=== PATIENT | male | born 1935 | race Caucasian/White ===

== ENCOUNTER 2019-11-08 18:07 | Emergency (ER) | payer BC, OTHER ==
--- NOTE | 2019-11-08 18:48 | EDM.PDOC ---
ED HPI GENERAL MEDICAL PROBLEM - General Stated Complaint: SOB/CHEST PAIN Time Seen by Provider: 11/08/19 18:20 Source of Information: Reports: Patient, Significant Other History Limitations: Reports: No Limitations - History of Present Illness INITIAL COMMENTS - FREE TEXT/NARRATIVE: Patient presents with report of pain in low central chest during the night last night that kept him awake all night. When he got up at 0600 this morning it got better and he says he coughed up a bunch of stuff. Today (for the last 12 hours) he has felt fine and had no trouble doing his normal activities. He [facility] who told him to come to ER to rule out heart etiology with his history of CABG and stents. He denies any previous IL and isn 't aware of any GERD. He denies any pain in chest, jaw, neck, shoulder or arms. - Related Data Allergies Allergy/AdvReac Type Severity Reaction Status Date / Time soybean Allergy Respiratory Verified 08/31/14 15:27 Distress Home Meds: Home Meds Acetaminophen [Tylenol] 650 mg PO BEDTIME PRN 10/14/13 [History] Aspirin [Halfprin] 81 mg PO DAILY 10/14/13 [History] Levalbuterol HCl [Xopenex] 0.63 mg INH TID PRN 10/14/13 [History] Propylene Glycol/Peg 400 [Systane 0.3-0.4% Eye Drops] 6 - 8 drop EYEBOTH BID 02/20 [History] atorvaSTATin [Lipitor] 40 mg PO BEDTIME 10/14/13 [History] hydroCHLOROthiazide [Microzide] 12.5 mg PO DAILY 10/14/13 [History] Cholecalciferol (Vitamin D3) [Vitamin D-3] 2,000 unit PO DAILY 08/31/14 [History ] Nebivolol HCl [Bystolic] 5 mg PO DAILY 08/31/14 [History] Valsartan [Diovan] 240 mg PO DAILY 08/31/14 [History] Furosemide [Lasix] 40 mg PO BID #60 tab 09/02/14 [Rx] ED ROS GENERAL - Review of Systems Review Of Systems: See Below Constitutional: Denies: Fever, Chills, Malaise, Weakness HEENT: Denies: Ear Pain, Throat Pain, Vision Change Respiratory: Denies: Shortness of Breath, Cough Cardiovascular: Denies: Chest Pain (not now but did last night, see HPI), Syncope GI/Abdominal: Denies: Abdominal Pain, Diarrhea, Vomiting Musculoskeletal: Denies: Neck Pain, Shoulder Pain, Arm Pain, Back Pain, Hand Pain Skin: Denies: Cyanosis, Jaundice, Mottled, Pallor, Diaphoresis Neurological: Denies: Confusion, Dizziness, Headache, Seizure, Syncope, Trouble Speaking, Difficulty Walking Psychiatric: Denies: Agitation, Anxiety, Confusion ED EXAM, GENERAL - Physical Exam Exam: See Below Exam Limited By: No Limitations General Appearance: Alert, WD/WN, No Apparent Distress Eye Exam: Bilateral Eye: EOMI, Normal Inspection, PERRL Ears: Normal External Exam, Hearing Grossly Normal Nose: Normal Inspection, No Blood Throat/Mouth: Normal Inspection, Normal Lips, Normal Voice, No Airway Compromise Head: Atraumatic, Normocephalic Neck: Normal Inspection, Supple, Non-Tender, Full Range of Motion Respiratory/Chest: No Respiratory Distress, Lungs Clear, Normal Breath Sounds, No Accessory Muscle Use Cardiovascular: Normal Peripheral Pulses, Regular Rate, Rhythm Peripheral Pulses: 2+: Carotid (L), Carotid (R), Radial (L), Radial (R) GI/Abdominal: Normal Bowel Sounds, Soft, Non-Tender, No Organomegaly Back Exam: Normal Inspection, Full Range of Motion. No: CVA Tenderness (L), CVA Tenderness (R) Extremities: Normal Inspection, Normal Range of Motion Neurological: Alert, Oriented, Normal Cognition, No Motor/Sensory Deficits Psychiatric: Normal Affect, Normal Mood Skin Exam: Warm, Dry, Intact, Normal Color, No Rash Course - Orders/Labs/Meds Orders: Active Orders 24 hr Category Date Time Status EKG Documentation Completion [RC] ASDIRECTED Care 11/08/19 18:32 Ordered Chest 2V [CR] Stat Exams 11/08/19 18:31 Ordered EKG 12 Lead [EK] Routine Ther 11/08/19 18:31 Ordered Labs: Laboratory Tests 11/08/19 11/08/19 Range/Units 18:20 18:20 WBC 6.81 (5.00-10.00) 10^3/uL RBC 4.76 (4.50-6.00) 10^6/uL Hgb 14.5 (13.0-17.0) g/dL Hct 43.7 (40.0-52.0) % MCV 91.8 (82.0-92.0) fL MCH 30.5 (27.0-31.0) pg MCHC 33.2 (32.0-36.0) g/dL RDW 14.0 (11.5-14.5) % Plt Count 178 (150-400) 10^3/uL MPV 10.3 (7.4-10.4) fL Immature Gran % (Auto) 0.3 (0.0-5.0) % Neut % (Auto) 67.9 (50.0-70.0) % Lymph % (Auto) 14.8 L (20.0-40.0) % [place] % (Auto) 10.4 H (2.0-8.0) % Eos % (Auto) 6.0 H (1.0-3.0) % Baso % (Auto) 0.6 (0.0-1.0) % Immature Gran # (Auto) 0.02 (0.00-0.50) 10^3/uL Neut # (Auto) 4.62 (2.50-7.00) 10^3/uL Lymph # (Auto) 1.01 (1.00-4.00) 10^3/uL [place] # (Auto) 0.71 (0.10-0.80) 10^3/uL Eos # (Auto) 0.41 H (0.10-0.30) 10^3/uL Baso # (Auto) 0.04 (0.00-0.10) 10^3/uL Sodium 147 H (136-145) mmol/L Potassium 4.4 (3.3-5.3) mmol/L Chloride 109 (98-115) mmol/L Carbon Dioxide 25.9 (21.0-32.0) mmol/L Anion Gap 16.5 H (5-15) mmol/L BUN 41 H (6-25) mg/dL Creatinine 1.68 H (0.51-1.17) mg/dL Est Cr Clr Drug Dosing TNP Estimated GFR (MDRD) 39 mL/min Glucose 111 H (75 - 99) mg/dL Calcium 9.0 (8.7-10.3) mg/dL Total Bilirubin 0.1 L (0.2-1.0) mg/dL AST 38 H (15-37) U/L ALT 69 (12-78) U/L Alkaline Phosphatase 78 (46-116) IU/L Troponin I 0.04 (0.00-0.070) ng/mL Total Protein 6.6 (6.4-8.2) g/dL Albumin 2.99 L (3.00-4.80) g/dL - Re-Assessments/Exams Free Text/Narrative Re-Assessment/Exam: 11/08/19 19:16 Trop is normal which with the time since symptoms should be very diagnostic. EKG shows RBBB similar to earlier today with PCP, but no ST changes. Discussed with patient and his that this most likely reflux-related but could also be angina. He will try an antacid and if no help will f/u with PCP for further evaluation and likely stress test. Patient has been completely normal and asymptomatic all day and since ER arrival. Discharged to home in stable condition. Departure - Departure Time of Disposition: 19:11 Disposition: Home, Self-Care 01 Condition: Good Clinical Impression: Non-cardiac chest pain - Discharge Information Referrals: PCP,Unknown [Ordering Only Provider] - Additional Instructions: 1. You can try an [id number] antacid if the pain returns. 2. Follow up with your PCP in a couple days, sooner if continuing or worsening. 3. Discuss with your PCP possibly doing a stress test again. Sepsis Event Note - Focused Exam Date Exam was Performed: 11/08/19 Time Exam was Performed: 19:11 - My Orders Last 24 Hours: My Active Orders 11/08/19 18:31 Chest 2V [CR] Stat EKG 12 Lead [EK] Routine 11/08/19 18:32 EKG Documentation Completion [RC] ASDIRECTED - Assessment/Plan Last 24 Hours: My Active Orders 11/08/19 18:31 Chest 2V [CR] Stat EKG 12 Lead [EK] Routine 11/08/19 18:32 EKG Documentation Completion [RC] ASDIRECTED
[2019-11-08 18:59] LABS: ANION GAP 16.5 mmol/L (5-15); CHLORIDE,CL 109 mmol/L (98-115); SODIUM,NA 147 mmol/L (136-145)
[2019-11-08 19:27] VITALS: BP 134/50; PULSE 80
== END 2019-11-08 19:30 | disposition home or self-care (01) ==
LOC: KA.ED 18:07
DX: R07.89 Other chest pain (principal); Z79.899 Other long term (current) drug therapy; Z79.82 Long term (current) use of aspirin; Z91.018 Allergy to other foods
CPT/HCPCS: 36415; 80053; 84484; 85025; 93005; 99285-25